=== PATIENT | male | born 1995 | race African-American/Black ===

== ENCOUNTER 2020-12-16 17:52 | Emergency (ER) | payer SELFPAY ==
[~2020-12-16] VITALS: Ht 200.7 cm; Wt 97.5 kg
[2020-12-16 18:17] VITALS: BP 123/72
[2020-12-16] MEDS ORDERED: LIDOCAINE 2% 20 ML MDV ONE (18:27)
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
--- NOTE | 2020-12-16 19:13 | NUR ---
Patient discharged to home in stable condition. Written and verbal after care instructions given. Patient verbalizes understanding of instruction.
== END 2020-12-16 19:13 | disposition home or self-care (01) ==
LOC: ER 17:55
DX: S01.411A Laceration without foreign body of right cheek and temporomandibular area, initial encounter (principal); S09.8XXA Other specified injuries of head, initial encounter; Z88.1 Allergy status to other antibiotic agents; Y04.0XXA Assault by unarmed brawl or fight, initial encounter; Y93.71 Activity, boxing; Y92.89 Other specified places as the place of occurrence of the external cause; Y99.8 Other external cause status
CPT/HCPCS: 12011; 99282; A4649; A6403; J3490